=== PATIENT | female | born 1955 | race Caucasian/White ===

== ENCOUNTER 2021-11-30 22:13 | Emergency (ER) | payer MEDICARE, OTHER ==
[2021-11-30] MEDS ORDERED: Ondansetron 4 MG/2 ML SDV IV ONE (22:29)
[2021-11-30] MEDS ORDERED: fentaNYL 50 MCG/ML SDV IVPUSH ONE (22:29)
[2021-11-30] MEDS ORDERED: Sodium Chloride 0.9% 10 ML Syringe FLUSH PRN (22:29)
== END 2021-12-01 00:37 | disposition short-term general hospital (02) ==
LOC: VM.ED 22:13
DX: S52.531A Colles' fracture of right radius, initial encounter for closed fracture (principal); W19.XXXA Unspecified fall, initial encounter
CPT/HCPCS: 29125; 73090-RT; 73110-RT; 99284-25